=== PATIENT | male | born 1995 | race Caucasian/White ===

== ENCOUNTER → 2016-09-09 | Outpatient (CLI) | payer BC | LOC: FIMAGING 16:42 | PROVIDERS: ATTEND Physician Assistant | DX: M79.605 Pain in left leg (principal) ==

== ENCOUNTER 2017-03-23 18:08 | Emergency (ER) | payer BC ==
[2017-03-23 18:39] VITALS: O2SAT 97
--- NOTE | 2017-03-23 20:18 | EDPHY ---
H & P Stated Complaint: Poss hyperventilation earlier today; carpal spasm,lightheaded Time Seen by Provider: 03/23/17 20:06 HPI/ROS: CHIEF COMPLAINT: Anxiety attack HISTORY OF PRESENT ILLNESS: The patient is a 21-year-old man who was at work when he began hyperventilating and feeling anxious. He is not sure why. He states that he developed severe cramping in both hands and around his lips had tingling and numbness. Paramedics arrived and were able to help him calm down. His symptoms resolved. They checked his blood sugar was 88. He refused transport. His boss then send him to [employer] [employer] where he was told that he had an anxiety attack and released. His dad was then angry and told the patient to come to the emergency department to get checked out. He is currently asymptomatic. He denies ever having any chest pain or shortness of breath. 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 He is no longer on any anticoagulants. He denies any leg pain or swelling. He states that this did not feel like previous DVTs. REVIEW OF SYSTEMS: Constitutional: denies: chills, fever, recent illness, recent injury EENTM: denies: blurred vision, double vision, nose congestion Respiratory: See HPI Cardiac: denies: chest pain, irregular heart rate, lightheadedness, palpitations Gastrointestinal/Abdominal: denies: abdominal pain, diarrhea, nausea, vomiting, blood streaked stools Genitourinary: denies: dysuria, frequency, hematuria, pain Musculoskeletal: See HPI Skin: denies: lesions, rash, jaundice, bruising Neurological: denies: headache, numbness, paresthesia, tingling, dizziness, weakness Hematologic/Lymphatic: denies: blood clots, easy bleeding, easy bruising Immunologic/allergic: denies: HIV/AIDS, transplant EXAM: GENERAL: Well-appearing, well-nourished and in no acute distress. HEAD: Atraumatic, normocephalic. EYES: Pupils equal round and reactive to light, extraocular movements intact, sclera anicteric, conjunctiva are normal. ENT: TMs normal, nares patent, oropharynx clear without exudates. Moist mucous membranes. NECK: Normal range of motion, supple without lymphadenopathy or JVD. LUNGS: Breath sounds clear to auscultation bilaterally and equal. No wheezes rales or rhonchi. HEART: Regular rate and rhythm without murmurs, rubs or gallops. ABDOMEN: Soft, nontender, normoactive bowel sounds. No guarding, no rebound. No masses appreciated. BACK: No CVA tenderness, no spinal tenderness, step-offs or deformities EXTREMITIES: Normal range of motion, no pitting or edema. No clubbing or cyanosis. NEUROLOGICAL: Cranial nerves II through XII grossly intact. Normal speech, normal gait. 5/5 strength, normal movement in all extremities, normal sensation PSYCH: Normal mood, normal affect. SKIN: Warm, dry, normal turgor, no visible rashes or lesions. Source: Patient Exam Limitations: No limitations - Personal History Current Tetanus Diphtheria and Acellular Pertussis (TDAP): Yes - Medical/Surgical History Hx Asthma: No Hx Chronic Respiratory Disease: No Hx Diabetes: No Hx Cardiac Disease: No Hx Renal Disease: No Hx Cirrhosis: No Hx Alcoholism: No Hx HIV/AIDS: No Hx Splenectomy or Spleen Trauma: No Other PMH: Provoked DVTs - Family History Significant Family History: No pertinent family hx - Social History Smoking Status: Never smoked Alcohol Use: Sober Drug Use: None Constitutional: Initial Vital Signs Temperature (C) 37.1 C 03/23/17 18:30 Heart Rate 74 03/23/17 18:30 Respiratory Rate 18 03/23/17 18:30 Blood Pressure 166/94 H 03/23/17 18:30 O2 Sat (%) 97 03/23/17 18:30 O2 Delivery Mode Room Air Allergies/Adverse Reactions: No Known Allergies Allergy (Verified 03/23/17 18:36) Home Medications: Medication Instructions Recorded NK [No Known Home Meds] 03/23/17 Medical Decision Making - Diagnostics EKG Interpretation: An EKG obtained and was read and documented in trace view. Please see trace view for full reading and report. Sinus rhythm, no acute ischemic changes ED Course/Re-evaluation: Patient's dad would like him to get blood work and an EKG which we will do. We discussed the risks and benefits of doing tests. We discussed obtaining a D- dimer although he denies chest pain or shortness of breath. He does not wish to have a D-dimer or go down that route. 9:20 p.m. patient's lab work is unremarkable. He is eager to go home. We discussed his treatment plan from here. We discussed indications for returning. Differential Diagnosis: Partial list of the Differential diagnosis considered include but were not limited to; anxiety, electrolyte abnormality, anemia, acute coronary disease and although unlikely based on the history and physical exam, I also considered the DVT, PE, infection. I discussed these differential diagnoses and the plan with the patient as well as the usual and expected course. The patient understands that the diagnosis is provisional and that in medicine we are not always correct and that further workup is often warranted. Usual and customary warnings were given. All of the patient's questions were answered. The patient was instructed to return to the emergency department should the symptoms at all worsen or return, otherwise to followup with the physician as we discussed. - Data Points Laboratory Results: Laboratory Results 03/23/17 19:26 03/23/17 19:26 Departure - Departure Disposition: Home, Routine, Self-Care Clinical Impression: Hyperventilation Condition: Fair Instructions: Hyperventilation (ED) Referrals: NONE *PRIMARY CARE P,. [Primary Care Provider] - As per Instructions Stand Alone Forms: Statement of Treatment, Work Excuse
[2017-03-23 20:33] LABS: ANION GAP 16 mEq/L (8-16); CALCIUM 10.1 mg/dL (8.5-10.4); CARBON DIOXIDE 20 mEq/l (22-31); CHLORIDE 103 mEq/L (97-110); CREATININE 0.8 mg/dL (0.7-1.3); GLOMERULAR FILTRATION RATE > 60; GLUCOSE 87 mg/dL (70-100); POTASSIUM 3.5 mEq/L (3.5-5.2); SODIUM 139 mEq/L (134-144)
[2017-03-23 20:44] LABS: ADD DIFF? NO
--- NOTE | 2017-03-23 20:47 | CPEKG ---
Heart Rate: 64 RR Interval: 938 P-R Interval: 144 QRSD Interval: 88 QT Interval: 404 QTC Interval: 417 P [place]: 2 QRS [place]: 54 T Wave [place]: 37 EKG Severity - NORMAL ECG - EKG Impression: SINUS RHYTHM Electronically Signed By: Jake Colmenares 23-Mar-2017 20:52:19
[2017-03-23 21:05] VITALS: BP 144/86
[2017-03-23 21:15] LABS: % IMMATURE GRANULYOCYTES 0.4 % (0.0-1.1); ABSOLUTE IMMATURE GRANULOCYTES 0.03 10^3/uL (0.00-0.10); ADD MORPH? YES; ADD SCAN? NO; ATYPICAL LYMPHOCYTE FLAG 0 (0-99); FRAGMENT RBC FLAG 0 (0-99); HEMOGLOBIN 18.5 g/dL (13.7-17.5); LEFT SHIFT FLG 0 (0-99); MEAN CELL HEMOGLOBIN 37.9 pg (27.9-34.1); MEAN CELL VOLUME 96.3 fL (81.5-99.8); MEAN PLATELET VOLUME 9.3 fL (8.7-11.7); PLATELET CLUMPS FLAG 0 (0-99); PLATELET COUNT 273 10^3/uL (150-400); RED BLOOD CELL COUNT 4.88 10^6/uL (4.40-6.38); RED CELL DISTRIBUTION WIDTH 10.7 % (11.5-15.2)
[2017-03-23 21:16] LABS: LIPEMIA HEMOLYSIS FLAG 100 (0-99)
[2017-03-23 21:17] LABS: MEAN CELL HEMOGLOBIN CONCENTR. 39.4 g/dL (32.4-36.7)
[2017-03-23 21:46] LABS: PLATELET ESTIMATE ADEQUATE (ADEQ)
[2017-03-23 21:53] VITALS: PULSE 61; RESP 16; TEMP 99
== END 2017-03-23 21:51 | disposition home or self-care (01) ==
DX: R06.4 Hyperventilation (principal)

== ENCOUNTER 2017-06-29 20:24 | Emergency (ER) | payer BC ==
--- NOTE | 2017-06-29 20:30 | EDPHY ---
H & P Time Seen by Provider: 06/29/17 20:25 HPI/ROS: CHIEF COMPLAINT: Vomiting HISTORY OF PRESENT ILLNESS: 22-year-old male presents with vomiting. Onset of vomiting 2 hr ago, multiple episodes since then. Associated with tingling in his face and hands. He took Xanax 1 hr prior to arrival for anxiety. Normal saline 1 L and Zofran 4 mg IV given by EMS. Starting to feel better already. No associated abdominal pain, diarrhea or fever. No known ill contacts. REVIEW OF SYSTEMS: A 10 point review of systems was performed and is negative with the exception of the elements mentioned in the history of present illness. Past Medical/Surgical History: Anxiety, takes Xanax occasionally Social History: Moderate alcohol use Occasional cocaine use Smoking Status: Never smoked Physical Exam: General Appearance: Alert, pleasant Eyes: Pupils equal and round, no conjunctival pallor or injection ENT, Mouth: Mucous membranes moist Neck: Normal inspection Respiratory: Lungs are clear to auscultation Cardiovascular: Regular rate and rhythm Gastrointestinal: Abdomen is soft, mild epigastric tenderness Neurological: A&O, nonfocal exam Skin: Warm and dry Extremities: Nontender, no pedal edema Psychiatric: Mood and affect normal Constitutional: Initial Vital Signs Temperature (C) 36.6 C 06/29/17 20:43 Heart Rate 89 06/29/17 20:43 Respiratory Rate 16 06/29/17 20:43 Blood Pressure 156/85 H 06/29/17 20:43 O2 Sat (%) 100 06/29/17 20:43 O2 Delivery Mode Room Air Allergies/Adverse Reactions: No Known Allergies Allergy (Verified 06/29/17 20:42) Home Medications: Medication Instructions Recorded Amitriptyline HCl 06/29/17 Xanax 06/29/17 Medical Decision Making ED Course/Re-evaluation: Clinical presentation consistent consistent with acute gastritis. IV normal saline 1 L given. 9:00 p.m.-feels better, tolerating oral fluids well. Abd exam remains benign. Will d/c home, warning signs discussed. Differential Diagnosis: Differential diagnosis includes though it is not limited to appendicitis, cholecystitis, diverticulitis, pyelonephritis, bowel perforation, small bowel obstruction. - Data Points Medications Given: Discontinued Medications Sodium Chloride (Ns) 1,000 mls @ 0 mls/hr IV ONCE ONE PRN Reason: Wide Open Stop: 06/29/17 20:50 Last Admin: 06/29/17 20:49 Dose: 1,000 mls Ondansetron HCl (Zofran Odt 4 Mg Prepack#2) 1 btl KRISTI EDNOW ONE Stop: 06/29/17 20:36 Last Admin: 06/29/17 21:41 Dose: 1 btl Departure - Departure Disposition: Home, Routine, Self-Care Clinical Impression: Anxiety Vomiting Qualifiers: Vomiting type: unspecified Vomiting Intractability: non-intractable Nausea presence: with nausea Qualified Code(s): R11.2 - Nausea with vomiting, unspecified Condition: Good Instructions: Ondansetron (By mouth), Acute Nausea and Vomiting (ED) Additional Instructions: 1. Clear liquids for 24 hours. 2. Advance diet as tolerated. I suggest the BRAT diet to start: bananas, rice, applesauce and toast. 3. Return for worsening symptoms, persistent vomiting, abdominal pain, any concerns. 4. Zofran 1 tablet under the tongue every 6 hours as needed for nausea. Referrals: Janis Rowan MD [Medical Doctor] - 2-3 days, if not improved
[2017-06-29] MEDS ORDERED: ONDANSETRON 4MG PREPACK#2 BTL TAKEHOME ONE (20:35)
[2017-06-29 20:49] VITALS: RESP 16
[2017-06-29] MEDS ORDERED: NS 1,000 ML IV ONE (20:49)
[2017-06-29 22:32] VITALS: BP 126/75; PULSE 87; TEMP 98.1; O2SAT 97
== END 2017-06-29 22:10 | disposition home or self-care (01) ==
LOC: EDUNIT#
DX: R11.2 Nausea with vomiting, unspecified (principal); F41.9 Anxiety disorder, unspecified